=== PATIENT | female | born 1975 | race Caucasian/White ===

== ENCOUNTER 2024-04-29 09:04 | Day surgery (SDC) | payer MEDICAID ==
[2024-04-29] VITALS (9 sets, daily range): BP systolic 85–122; BP diastolic 59–76; PULSE 64–77; RESP 16–20; O2SAT 94–97
[~2024-04-29] VITALS: Ht 157.5 cm; Wt 61.5 kg
[~2024-04-29 09:04] MED LIST: ACET-75; ALBUTEROL; CALC-157; CHOL100046 PO; IBUP-1986 PO; VALA100031 PO
[2024-04-29] MEDS ORDERED: MIDAZolam 1 MG/ML 5ML VIAL ONE (09:17)
[2024-04-29] MEDS ORDERED: fentaNYL/PF 50MCG/1 ML 2ML syringe ONE (09:17)
[2024-04-29] MEDS ORDERED: diphenhydrAMINE 50 mg/ml inj ONE (09:18)
[2024-04-29] MEDS ORDERED: simethicone 40mg/0.6ml oral drops 30ml ONE (09:30)
== END 2024-04-29 10:35 | disposition home or self-care (01) ==
LOC: GI LAB 09:04
PROVIDERS: ATTEND Internal Medicine Gastroenterology
DX: Z12.11 Encounter for screening for malignant neoplasm of colon (principal)
CPT/HCPCS: 45378; 99152; J2250; J3010; J7030; Z7512; A4620; J1200